=== PATIENT | female | born 1980 | race African-American/Black ===

== ENCOUNTER 2016-11-23 21:07 | Emergency (ER) | payer SELFPAY ==
--- NOTE | 2016-11-23 22:13 | RAD ---
THREE VIEWS OF THE RIGHT ANKLE 11/23/16 HISTORY: Injury after trauma. FINDINGS: A true lateral projection is Not provided which limits evaluation. There is otherwise no definite fracture seen, and there is no evidence of a dislocation. Posterior and plantar calcaneal enthesophytes are seen. There is subcutan eous soft tissue swelling about the ankle. IMPRESSION: Subcutaneous soft tissue swelling without evidence of a fracture. A true lateral view of the right a nkle is not provided. The provided lateral view is rotated. This does limit evaluation, but no defin ite acute osseous abnormality is seen. POS: [facility]
== END 2016-11-23 22:17 | disposition home or self-care (01) ==
LOC: MADERS 21:07
DX: S93.401A Sprain of unspecified ligament of right ankle, initial encounter (principal); I10 Essential (primary) hypertension; J45.909 Unspecified asthma, uncomplicated; F32.9 Major depressive disorder, single episode, unspecified; W18.09XA Striking against other object with subsequent fall, initial encounter

== ENCOUNTER 2016-12-27 20:55 | Emergency (ER) | payer SELFPAY ==
[2016-12-27 21:25] LABS: Bilirubin Negative (Negative); Blood, Urine Small (Negative); Clarity Clear (Clear); Glucose, Urine (Dipstick) Negative (Negative); Leukocyte Negative (Negative); Nitrite Negative (Negative); Pregnancy Test - Urine (BHCG) NEGATIVE (NEGATIVE); Pregu Control Bar Appear? YES (CONTROL BAR); Protein, Urine (Dipstick) Negative (Neg-Trace); Specific Gravity 1.025 (1.002-1.036); Specific Gravity, Urine 1.025 (1.005-1.030)
[2016-12-27 21:48] LABS: #Basophils 0.1 thou/uL (0.0-0.2); #Eosinphils 0.2 thou/uL (0.0-0.7); #Lymphocytes 2.5 thou/uL (1.20-3.40); #Monocytes 0.8 thou/uL (0.11-0.59); #Neutrophils 6.5 thou/uL (1.40-6.50); %Eosinophils 2.4 % (0.0-10.0); %Lymphocytes 24.5 % (21.0-51.0); %Monocytes 8.1 % (0.0-10.0); Hemoglobin 10.6 g/dL (12.0-16.0); Mean Corpuscular HGB CONC 32.3 g/dL (32.0-36.0); Mean Corpuscular Hemoglobin 27.5 pg (27.0-31.0); Mean Corpuscular Volume 85.3 fl (81.0-99.0); Mean Platelet Volume 8.6 fL (7.4-10.4); Platelet Count 293 thou/uL (130-400); RBC Distribution Width 12.5 % (11.5-14.5); Red Blood Cell (RBC) Count 3.85 mill/uL (4.20-5.40); White Blood Cell (WBC) Count 10.1 thou/uL (4.8-10.8)
[2016-12-27 21:49] LABS: Bacteria/HPF Rare-Few HPF (None Seen); WBC/HPF None Seen HPF (0-3)
[2016-12-27 22:02] LABS: ALT (SGPT) 13 U/L (0-55); AST (SGOT) 13 U/L (5-34); Albumin 3.5 g/dL (3.5-5.0); Alkaline Phosphatase 91 U/L (40-150); Anion Gap 14 mmol/L (10-20); BUN (Urea Nitrogen) 16 mg/dL (7.0-18.7); Bilirubin, Total Less than 0.3 mg/dL (0.2-1.2); Calc. Creatinine Clearance 0 mL/min (70-130); Calcium 8.6 mg/dL (7.8-10.44); Carbon Dioxide 24 mmol/L (22-29); Chloride 106 mmol/L (98-107); Estimated GFR-MDRD 67; Globulin 3.3 g/dL (2.4-3.5); Glucose 100 mg/dL (70-105); Potassium 3.9 mmol/L (3.5-5.1); Protein, Total 6.8 g/dL (6.0-8.3); Sodium 140 mmol/L (136-145)
[2016-12-27] MEDS ORDERED: Naproxen 500 MG TAB ONE (22:20)
[2016-12-27] MEDS ORDERED: HYDROcodone/Acetaminophen 10/325 mg Tablet ONE (22:20)
[2016-12-27] MEDS ORDERED: Cephalexin 500 MG CAP ONE (22:30)
[2016-12-27] MEDS ORDERED: Sulfameth/Trimethoprim DS 800-160mg TAB ONE (22:30)
== END 2016-12-27 22:46 | disposition home or self-care (01) ==
LOC: MADERS 20:55
DX: K57.92 Diverticulitis of intestine, part unspecified, without perforation or abscess without bleeding (principal); I10 Essential (primary) hypertension; J45.909 Unspecified asthma, uncomplicated; E66.9 Obesity, unspecified; F32.9 Major depressive disorder, single episode, unspecified
CPT/HCPCS: 36415; 80053; 81001; 81025; 85025; 87086; 99284

== ENCOUNTER 2017-02-22 18:02 | Emergency (ER) | payer SELFPAY ==
[2017-02-22 18:48] LABS: Pregnancy Test - Urine (BHCG) Negative (Negative); Pregu Control Background? CLEAR/WHITE (CLR/WHITE); Pregu Control Bar Appear? YES (CONTROL BAR); Specific Gravity 1.025 (1.002-1.036)
[2017-02-22 18:49] LABS: Bilirubin Negative (Negative); Blood, Urine Moderate (Negative); Clarity Clear (Clear); Glucose, Urine (Dipstick) Negative (Negative); Leukocyte Negative (Negative); Nitrite Negative (Negative); Protein, Urine (Dipstick) Negative (Neg-Trace); Specific Gravity, Urine 1.025 (1.005-1.030); Urobilinogen 0.2 mg/dL (0.2-1.0); pH, Urine 5.5 (5.0-9.0)
[2017-02-22 18:51] LABS: Bacteria/HPF Rare-Few HPF (None Seen); WBC/HPF 0-3 HPF (0-3)
[2017-02-22 18:53] LABS: #Basophils 0.1 thou/uL (0.0-0.2); #Eosinphils 0.2 thou/uL (0.0-0.7); #Lymphocytes 2.2 thou/uL (1.20-3.40); #Monocytes 0.6 thou/uL (0.11-0.59); #Neutrophils 5.1 thou/uL (1.40-6.50); %Basophils 1.4 % (0.0-1.0); %Eosinophils 2.2 % (0.0-10.0); %Monocytes 7.3 % (0.0-10.0); Hemoglobin 10.8 g/dL (12.0-16.0); Mean Corpuscular HGB CONC 30.3 g/dL (32.0-36.0); Mean Corpuscular Hemoglobin 26.2 pg (27.0-31.0); Mean Corpuscular Volume 86.5 fl (81.0-99.0); Mean Platelet Volume 8.7 fL (7.4-10.4); Platelet Count 324 thou/uL (130-400); RBC Distribution Width 12.7 % (11.5-14.5); Red Blood Cell (RBC) Count 4.12 mill/uL (4.20-5.40); White Blood Cell (WBC) Count 8.2 thou/uL (4.8-10.8)
[2017-02-22 19:08] LABS: ALT (SGPT) 11 U/L (8-55); AST (SGOT) 12 U/L (5-34); Albumin 3.6 g/dL (3.5-5.0); Alkaline Phosphatase 98 U/L (40-150); Anion Gap 16 mmol/L (10-20); BUN (Urea Nitrogen) 15 mg/dL (7.0-18.7); Bilirubin, Total Less than 0.3 mg/dL (0.2-1.2); Calc. Creatinine Clearance 0 mL/min (70-130); Calcium 8.8 mg/dL (7.8-10.44); Carbon Dioxide 23 mmol/L (22-29); Chloride 105 mmol/L (98-107); Estimated GFR-MDRD 84; Globulin 3.8 g/dL (2.4-3.5); Glucose 88 mg/dL (70-105); Potassium 4.2 mmol/L (3.5-5.1); Protein, Total 7.4 g/dL (6.0-8.3); Sodium 140 mmol/L (136-145)
== END 2017-02-22 20:35 | disposition home or self-care (01) ==
LOC: MADERS 18:02
DX: N93.8 Other specified abnormal uterine and vaginal bleeding (principal); J45.909 Unspecified asthma, uncomplicated; I10 Essential (primary) hypertension; E66.9 Obesity, unspecified; F32.9 Major depressive disorder, single episode, unspecified
CPT/HCPCS: 80053; 81001; 81025; 84443; 85025; 87086; 99284

== ENCOUNTER 2017-04-15 21:25 | Emergency (ER) | payer SELFPAY ==
[2017-04-15] MEDS ORDERED: Aspirin 325 MG TAB ONE (21:48)
[2017-04-15] MEDS ORDERED: Nitroglycerin 0.4 MG TAB 1 EACH ONE ×2 (21:48→22:58)
[2017-04-15 22:00] LABS: INR-International Normal Ratio 1.2; PTT 32.8 SEC (22.9-36.1)
[2017-04-15 22:01] LABS: BHCG - Serum Negative (NEGATIVE); Pregs Control Background? CLEAR/WHITE (CLR/WHITE); Pregs Control Bar Appear? YES (CONTROL BAR)
[2017-04-15 22:12] LABS: #Basophils 0.2 thou/uL (0.0-0.2); #Eosinphils 0.2 thou/uL (0.0-0.7); #Lymphocytes 2.4 thou/uL (1.20-3.40); #Monocytes 0.6 thou/uL (0.11-0.59); #Neutrophils 6.6 thou/uL (1.40-6.50); %Basophils 1.7 % (0.0-1.0); %Eosinophils 1.7 % (0.0-10.0); %Lymphocytes 24.3 % (21.0-51.0); %Monocytes 5.7 % (0.0-10.0); %Neutrophils 66.5 % (42.0-75.0); Mean Corpuscular HGB CONC 32.5 g/dL (32.0-36.0); Mean Corpuscular Hemoglobin 27.1 pg (27.0-31.0); Mean Corpuscular Volume 83.3 fl (81.0-99.0); Mean Platelet Volume 8.4 fL (7.4-10.4); Platelet Count 318 thou/uL (130-400); RBC Distribution Width 12.3 % (11.5-14.5); Red Blood Cell (RBC) Count 4.04 mill/uL (4.20-5.40); White Blood Cell (WBC) Count 9.9 thou/uL (4.8-10.8)
[2017-04-15 22:13] LABS: ALT (SGPT) 15 U/L (8-55); AST (SGOT) 14 U/L (5-34); Albumin 3.7 g/dL (3.5-5.0); Alkaline Phosphatase 99 U/L (40-150); Anion Gap 15 mmol/L (10-20); BUN (Urea Nitrogen) 16 mg/dL (7.0-18.7); Bilirubin, Total 0.3 mg/dL (0.2-1.2); CK (CPK) 125 U/L (29-168); Calc. Creatinine Clearance 0 mL/min (70-130); Calcium 8.5 mg/dL (7.8-10.44); Carbon Dioxide 23 mmol/L (22-29); Chloride 107 mmol/L (98-107); Estimated GFR-MDRD 62; Globulin 3.4 g/dL (2.4-3.5); Glucose 112 mg/dL (70-105); Potassium 3.7 mmol/L (3.5-5.1); Protein, Total 7.1 g/dL (6.0-8.3); Sodium 141 mmol/L (136-145)
[2017-04-15 22:14] LABS: CKMB 1.2 ng/mL (0-6.6); Troponin I Less than 0.010 ng/mL (< 0.028)
[2017-04-15 22:15] LABS: Hemoglobin A1c 4.6 % (4.0-6.0)
--- NOTE | 2017-04-15 22:28 | RAD ---
EXAM: ONE VIEW CHEST 04/15/17 HISTORY: Chest pain. COMPARISON: 06/08/16 FINDINGS: Portable upright chest radiograph demonstrates a normal cardiac silhouette. Diminished lung volumes likely due to poor inspiratory effort. Patchy opacities in the lung bases likely represent atelectas is. No pneumothorax or osseous abnormality. IMPRESSION: Bilateral lower lobe atelectasis. Diminished lung volumes due to poor inspiratory effort. POS: [facility]
[2017-04-15 23:10] LABS: Clarity Clear (Clear)
[2017-04-15 23:11] LABS: Glucose, Urine (Dipstick) Negative (Negative); Leukocyte Negative (Negative); Nitrite Negative (Negative); Protein, Urine (Dipstick) Trace mg/dL (Neg-Trace); Specific Gravity, Urine 1.032 (1.002-1.036)
[2017-04-15 23:12] LABS: Bacteria/HPF 1+ HPF (None Seen); Bilirubin Negative (Negative); Blood, Urine Trace (Negative); Other Microscopic Description 1+ MUCUS; Squamous Epithelial 0-3 HPF (0-3); WBC/HPF 0-3 HPF (0-3)
== END 2017-04-15 22:45 | disposition home or self-care (01) ==
LOC: MADERS 21:25
DX: R07.89 Other chest pain (principal); I10 Essential (primary) hypertension; J45.909 Unspecified asthma, uncomplicated; E66.9 Obesity, unspecified; F41.9 Anxiety disorder, unspecified; F32.9 Major depressive disorder, single episode, unspecified; Z79.2 Long term (current) use of antibiotics; Z79.891 Long term (current) use of opiate analgesic; Z79.899 Other long term (current) drug therapy
CPT/HCPCS: 71010; 80053; 81001; 82550; 82553; 83036; 83735; 83880; 84484; 84703; 85025; 85610; 85730; 87086; 93005; 94760

== ENCOUNTER 2017-06-15 21:24 | Emergency (ER) | payer SELFPAY ==
[2017-06-15 21:53] LABS: Clarity Clear (Clear); Glucose, Urine (Dipstick) Negative (Negative); Leukocyte Negative (Negative); Nitrite Negative (Negative); Protein, Urine (Dipstick) Negative (Neg-Trace)
[2017-06-15 21:54] LABS: Bilirubin Negative (Negative); Blood, Urine Small (Negative)
[2017-06-15 21:56] LABS: Bacteria/HPF Rare-Few HPF (None Seen); WBC/HPF 0-3 HPF (0-3)
[2017-06-15 21:57] LABS: Yeast-All Forms Rare HPF (None Seen)
[2017-06-15] MEDS ORDERED: Ibuprofen 800 MG TAB ONE (22:09)
== END 2017-06-15 22:32 | disposition home or self-care (01) ==
LOC: MADERS 21:24
DX: M62.830 Muscle spasm of back (principal); I10 Essential (primary) hypertension; J45.909 Unspecified asthma, uncomplicated; E66.9 Obesity, unspecified; F32.9 Major depressive disorder, single episode, unspecified; F41.9 Anxiety disorder, unspecified
CPT/HCPCS: 81003; 81015; 99283

== ENCOUNTER 2017-09-10 13:49 | Emergency (ER) | payer SELFPAY ==
[2017-09-10] MEDS ORDERED: Oseltamivir 75 MG CAP ONE (14:22)
[2017-09-10] MEDS ORDERED: Ketorolac Tromethamine 60 MG/2 ML VIAL ONE (14:22)
[2017-09-10 14:25] LABS: Pregnancy Test - Urine (BHCG) Negative (Negative); Specific Gravity 1.034 (1.002-1.036)
[2017-09-10 14:26] LABS: Pregu Control Background? CLEAR/WHITE (CLR/WHITE); Pregu Control Bar Appear? YES (CONTROL BAR)
== END 2017-09-10 14:45 | disposition home or self-care (01) ==
LOC: MADERS 13:49
DX: J11.1 Influenza due to unidentified influenza virus with other respiratory manifestations (principal); I10 Essential (primary) hypertension; E66.9 Obesity, unspecified; J45.909 Unspecified asthma, uncomplicated; F32.9 Major depressive disorder, single episode, unspecified; Z79.899 Other long term (current) drug therapy
CPT/HCPCS: 81025; 96372; J1885

== ENCOUNTER 2018-02-11 02:28 | Emergency (ER) | payer SELFPAY | END 2018-02-11 03:00 | disposition home or self-care (01) | LOC: MADERS 02:28 | DX: M54.5 Low back pain (principal); I10 Essential (primary) hypertension; E66.9 Obesity, unspecified; J45.909 Unspecified asthma, uncomplicated; F41.9 Anxiety disorder, unspecified; F32.9 Major depressive disorder, single episode, unspecified | CPT/HCPCS: 99283 ==

== ENCOUNTER 2018-03-20 23:36 | Emergency (ER) | payer SELFPAY ==
[~2018-03-20 23:36] MED LIST: Sodium Chloride 0.9% 500 ML BAG ONE
[2018-03-21] MEDS ORDERED: diphenhydrAMINE 50 MG/ML VIAL ONE (00:08)
[2018-03-21] MEDS ORDERED: Metoclopramide HCl 10 MG/2 ML VIAL ONE (00:09)
[2018-03-21] MEDS ORDERED: Magnesium Sulfate 2 GM/NS 0.9% 50 ML BAG ONE (00:09)
[2018-03-21] MEDS ORDERED: methylPREDNISolone Sod Succ/PF 125 MG/2 ML VIAL ONE (00:09)
[2018-03-21 00:21] LABS: Prothrombin Time 13.4 SEC (12.0-14.7)
[2018-03-21 00:28] LABS: ALT (SGPT) 12 U/L (8-55); AST (SGOT) 14 U/L (5-34); Albumin 3.4 g/dL (3.5-5.0); Alkaline Phosphatase 86 U/L (40-150); Anion Gap 16 mmol/L (10-20); BUN (Urea Nitrogen) 18 mg/dL (7.0-18.7); Bilirubin, Total 0.2 mg/dL (0.2-1.2); Calc. Creatinine Clearance 0 mL/min (70-130); Calcium 8.9 mg/dL (7.8-10.44); Carbon Dioxide 23 mmol/L (22-29); Chloride 108 mmol/L (98-107); Estimated GFR-MDRD 73; Globulin 3.8 g/dL (2.4-3.5); Glucose 97 mg/dL (70-105); Potassium 4.2 mmol/L (3.5-5.1); Protein, Total 7.2 g/dL (6.0-8.3); Sodium 143 mmol/L (136-145)
[2018-03-21 00:33] LABS: Hemoglobin 11.1 g/dL (12.0-16.0); Mean Corpuscular HGB CONC 33.4 g/dL (32.0-36.0); Mean Corpuscular Hemoglobin 27.2 pg (27.0-31.0); Mean Corpuscular Volume 81.3 fL (78.0-98.0); Platelet Count 334 thou/uL (130-400); RBC Distribution Width 12.4 % (11.5-14.5); Red Blood Cell (RBC) Count 4.07 mill/uL (4.20-5.40); White Blood Cell (WBC) Count 8.6 thou/uL (4.8-10.8)
[2018-03-21 00:34] LABS: Anisocytosis SLIGHT = 6-15 cells (100X) (0-5/hpf); Eosinophils 2 % (0-10); Lymphocytes 31 % (21-51); MDiff Complete? YES; Monocytes 4 % (0-10); Neutrophil 62 % (42-75); PLT Morphology Comment Appears Adequate; Poikilocytosis SLIGHT = 6-15 cells (100X) (0-5/hpf); RBC Morphology Abnormal; Reactive Lymphocytes 1 % (0-10)
== END 2018-03-21 01:19 | disposition home or self-care (01) ==
LOC: MADERS 23:36
DX: G43.909 Migraine, unspecified, not intractable, without status migrainosus (principal); I10 Essential (primary) hypertension; J45.909 Unspecified asthma, uncomplicated; Z79.899 Other long term (current) drug therapy; E66.9 Obesity, unspecified; F41.9 Anxiety disorder, unspecified; F32.9 Major depressive disorder, single episode, unspecified
CPT/HCPCS: 80053; 85025; 85610; 96365; 96375; J1200; J2765; J2930; J3475; J7050

== ENCOUNTER 2018-08-24 18:44 | Emergency (ER) | payer SELFPAY ==
[2018-08-24] MEDS ORDERED: HYDROcodone/Acetaminophen 5/325 mg Tablet ONE (19:20)
[2018-08-24] MEDS ORDERED: Ibuprofen 800 MG TAB ONE (19:20)
--- NOTE | 2018-08-24 19:34 | RAD ---
FOUR VIEWS OF THE RIGHT KNEE: 08/24/18 COMPARISON: None. HISTORY: Fall with right knee pain. FINDINGS: Four views of the right knee shows no evidence of acute fracture or dislocation. Small osteophytes ar e seen in the lateral femorotibial and patellofemoral compartments consistent with osteoarthritis. No knee effusion is seen. IMPRESSION: Mild right knee osteoarthritis without acute osseous abnormality. POS: [facility]
== END 2018-08-24 19:37 | disposition home or self-care (01) ==
LOC: MADERS 18:44
DX: M25.561 Pain in right knee (principal); M54.5 Low back pain; I10 Essential (primary) hypertension; E66.9 Obesity, unspecified; J45.909 Unspecified asthma, uncomplicated; W19.XXXA Unspecified fall, initial encounter

== ENCOUNTER 2018-10-16 20:14 | Emergency (ER) | payer OTHER | END 2018-10-16 20:45 | disposition home or self-care (01) | LOC: MADERS 20:14 | DX: M25.561 Pain in right knee (principal); I10 Essential (primary) hypertension; E66.9 Obesity, unspecified; J45.909 Unspecified asthma, uncomplicated; F41.9 Anxiety disorder, unspecified; Z79.899 Other long term (current) drug therapy | CPT/HCPCS: 99283 ==

== ENCOUNTER 2018-12-19 20:39 | Emergency (ER) | payer OTHER ==
--- NOTE | 2018-12-19 21:12 | RAD ---
Right ankle 3 views: 12/19/2018 COMPARISON: 11/23/2016 History: Right ankle pain FINDINGS: There is enthesophyte formation at the origin of the plantar aponeurosis. There is dorsal m id foot degenerative change with osteophyte formation and joint space narrowing. No displaced fracture or evidence of dislocation seen. IMPRESSION: Degenerative changes with no acute fracture or dislocation seen.
== END 2018-12-19 21:45 | disposition home or self-care (01) ==
LOC: MADERS 20:39
DX: S93.401A Sprain of unspecified ligament of right ankle, initial encounter (principal); S86.011A Strain of right Achilles tendon, initial encounter; J45.909 Unspecified asthma, uncomplicated; E66.9 Obesity, unspecified; I10 Essential (primary) hypertension; F41.9 Anxiety disorder, unspecified; Z79.899 Other long term (current) drug therapy; X58.XXXA Exposure to other specified factors, initial encounter; F32.9 Major depressive disorder, single episode, unspecified

== ENCOUNTER 2020-12-09 20:44 | Emergency (ER) | payer BC, SELFPAY ==
[2020-12-09] MEDS ORDERED: diphenhydrAMINE 50 MG/ML VIAL ONE (21:16)
[2020-12-09] MEDS ORDERED: Prochlorperazine 10 MG/2 ML VIAL ONE (21:16)
[2020-12-09] MEDS ORDERED: Loperamide HCl 2 MG CAP ONE (21:16)
== END 2020-12-09 21:53 | disposition home or self-care (01) ==
LOC: MADERS 20:44
DX: K52.9 Noninfective gastroenteritis and colitis, unspecified (principal); I10 Essential (primary) hypertension; J45.909 Unspecified asthma, uncomplicated; E66.9 Obesity, unspecified
CPT/HCPCS: 96372; 99283; J0780; J1200

== ENCOUNTER 2021-01-23 18:27 | Emergency (ER) | payer BC ==
[2021-01-23 19:27] LABS: Bilirubin Negative (Negative); Blood, Urine Large (Negative); Clarity Slightly Cloudy (Clear); Glucose, Urine (Dipstick) Negative (Negative); Ketone, Urine Negative (Negative); Leukocyte Negative (Negative); Nitrite Negative (Negative); Protein, Urine (Dipstick) Negative (Neg-Trace); Urobilinogen 0.2 mg/dL (Less than 2); pH, Urine 5.5 (5.0-9.0)
[2021-01-23 19:35] LABS: RBC/HPF Greater than 50 HPF (0-3); Specific Gravity, Urine 1.025 (1.002-1.036)
[2021-01-23 19:36] LABS: Bacteria/HPF Rare-Few HPF (None Seen); WBC/HPF 0-3 HPF (0-3)
[2021-01-23 19:38] LABS: BHCG - Serum Negative (NEGATIVE); Pregs Control Background? CLEAR/WHITE (CLR/WHITE); Pregs Control Bar Appear? YES (CONTROL BAR)
[2021-01-23 19:46] LABS: #Basophils 0.1 thou/uL (0.0-0.2); #Eosinphils 0.2 thou/uL (0.0-0.7); #Lymphocytes 1.9 thou/uL (1.20-3.40); #Monocytes 0.5 thou/uL (0.11-0.59); #Neutrophils 3.5 thou/uL (1.40-6.50); %Basophils 1.7 % (0.0-1.0); %Eosinophils 3.5 % (0.0-10.0); %Lymphocytes 29.9 % (21.0-51.0); %Monocytes 8.6 % (0.0-10.0); %Neutrophils 56.3 % (42.0-75.0); Bite Cells SLIGHT = 2-5 cells (100X) (0-1/hpf); Burr Cells SLIGHT = 2-5 cells (100X) (0-1/hpf); Helmet Cells SLIGHT = 2-5 cells (100X) (0-1/hpf); Hypochromia MODERATE=16-30 cells (100X) (0-5/hpf); MDiff Complete? YES; Mean Corpuscular HGB CONC 27.8 g/dL (32.0-36.0); Mean Corpuscular Hemoglobin 22.7 pg (27.0-31.0); Mean Corpuscular Volume 81.7 fL (78.0-98.0); Mean Platelet Volume 8.4 fL (7.4-10.4); Microcytosis SLIGHT = 6-15 cells (100X) (0-5/hpf); Ovalocytes SLIGHT = 2-5 cells (100X) (0-1/hpf); Platelet Count 369 thou/uL (130-400); Platelet Morphology Comment Appears Adequate; RBC Distribution Width 16.6 % (11.5-14.5); Red Blood Cell (RBC) Count 3.52 mill/uL (4.20-5.40); White Blood Cell (WBC) Count 6.3 thou/uL (4.8-10.8)
== END 2021-01-23 20:19 | disposition home or self-care (01) ==
LOC: MADERS 18:27
DX: N93.9 Abnormal uterine and vaginal bleeding, unspecified (principal); I10 Essential (primary) hypertension
CPT/HCPCS: 36415; 81003; 81015; 84703; 85025; 85060; 87480; 87491; 87510; 87591; 87660; 99284

== ENCOUNTER 2021-02-26 19:03 | Emergency (ER) | payer BC | END 2021-02-26 20:30 | disposition home or self-care (01) | LOC: MADERS 19:03 | DX: S81.011A Laceration without foreign body, right knee, initial encounter (principal); I10 Essential (primary) hypertension; E66.9 Obesity, unspecified; J45.909 Unspecified asthma, uncomplicated; X50.1XXA Overexertion from prolonged static or awkward postures, initial encounter ==

== ENCOUNTER 2022-02-21 13:04 | Emergency (ER) | payer OTHER ==
[2022-02-21] MEDS ORDERED: Cyclobenzaprine 10 MG TAB ONE (13:41)
[2022-02-21 13:53] LABS: Bilirubin Negative (Negative); Blood, Urine Trace (Negative); Glucose, Urine (Dipstick) Negative (Negative); Ketone, Urine Negative (Negative); Leukocyte Negative (Negative); Nitrite Negative (Negative); Protein, Urine (Dipstick) Negative (Neg-Trace)
[2022-02-21 13:54] LABS: Clarity Hazy (Clear)
[2022-02-21 13:55] LABS: Pregnancy Test - Urine (BHCG) Negative (Negative); Pregu Control Background? CLEAR/WHITE (CLR/WHITE); Pregu Control Bar Appear? YES (CONTROL BAR)
[2022-02-21 14:00] LABS: Bacteria/HPF 1+ HPF (None Seen); WBC/HPF 0-3 HPF (0-3)
== END 2022-02-21 14:12 | disposition home or self-care (01) ==
LOC: MADERS 13:04
DX: M54.41 Lumbago with sciatica, right side (principal); R31.29 Other microscopic hematuria; I10 Essential (primary) hypertension
CPT/HCPCS: 81003; 81015; 81025; 99283

== ENCOUNTER 2022-05-29 15:35 | Emergency (ER) | payer SELFPAY | END 2022-05-29 16:25 | disposition left against medical advice (07) | LOC: MADERS 15:35 | DX: Z53.21 Procedure and treatment not carried out due to patient leaving prior to being seen by health care provider (principal) ==

== ENCOUNTER 2022-06-07 21:37 | Emergency (ER) | payer BC, SELFPAY | END 2022-06-07 22:53 | disposition home or self-care (01) | LOC: MADERS 21:37 | DX: G56.03 Carpal tunnel syndrome, bilateral upper limbs (principal); M25.561 Pain in right knee; I10 Essential (primary) hypertension; F17.290 Nicotine dependence, other tobacco product, uncomplicated | CPT/HCPCS: 29125 ==

== ENCOUNTER 2022-08-25 22:52 | Emergency (ER) | payer BC, SELFPAY ==
[2022-08-26] MEDS ORDERED: Ibuprofen 800 MG TAB ONE (00:56)
== END 2022-08-26 01:05 | disposition home or self-care (01) ==
LOC: MADERS 22:52
DX: M25.561 Pain in right knee (principal); F17.290 Nicotine dependence, other tobacco product, uncomplicated

== ENCOUNTER 2022-10-26 20:47 | Emergency (ER) | payer BC, SELFPAY ==
[~2022-10-26 20:47] MED LIST changes: +Sodium Chloride 0.9% 1,000 ML BAG ONE; -Sodium Chloride 0.9% 500 ML BAG ONE
[2022-10-26 21:15] LABS: #Basophils 0.1 thou/uL (0.0-0.2); #Eosinphils 0.1 thou/uL (0.0-0.7); #Lymphocytes 2.1 thou/uL (1.20-3.40); #Monocytes 0.5 thou/uL (0.11-0.59); #Neutrophils 3.6 thou/uL (1.40-6.50); %Basophils 1.3 % (0.0-1.0); %Eosinophils 2.1 % (0.0-10.0); %Lymphocytes 33.2 % (21.0-51.0); %Monocytes 7.5 % (0.0-10.0); %Neutrophils 55.9 % (42.0-75.0); Hemoglobin 11.1 g/dL (12.0-16.0); Mean Corpuscular HGB CONC 32.6 g/dL (32.0-36.0); Mean Corpuscular Volume 85.9 fl (78.0-98.0); Mean Platelet Volume 8.1 fL (7.4-10.4); Platelet Count 299 10x3/uL (130-400); RBC Distribution Width 11.8 % (11.5-14.5); Red Blood Cell (RBC) Count 3.98 mill/uL (4.20-5.40); White Blood Cell (WBC) Count 6.4 10x3/uL (4.8-10.8)
[2022-10-26 21:25] LABS: BHCG - Serum Negative (NEGATIVE); Pregs Control Background? CLEAR/WHITE (CLR/WHITE); Pregs Control Bar Appear? YES (CONTROL BAR)
[2022-10-26 21:36] LABS: ALT (SGPT) 11 U/L (8-55); AST (SGOT) 12 U/L (5-34); Albumin 3.5 g/dL (3.5-5.0); Alkaline Phosphatase 63 U/L (40-110); Anion Gap 14 mmol/L (10-20); BUN (Urea Nitrogen) 13 mg/dL (7.0-18.7); Bilirubin, Total 0.3 mg/dL (0.2-1.2); Calc. Creatinine Clearance 0 mL/min (70-130); Calcium 8.6 mg/dL (7.8-10.44); Carbon Dioxide 24 mmol/L (22-29); Chloride 108 mmol/L (98-107); Estimated GFR 82; Globulin 3.2 g/dL (2.4-3.5); Glucose 96 mg/dL (70-105); Potassium 3.9 mmol/L (3.5-5.1); Protein, Total 6.7 g/dL (6.0-8.3); Sodium 142 mmol/L (136-145)
[2022-10-26 21:37] LABS: Acetaminophen Less than 10.0 mcg/mL (10.0-30.0); Alcohol Less than 10 mg/dL (Less than 10); Salicylate Less than 8.0 mg/dL (15.0-30.0)
[2022-10-26] MEDS ORDERED: Aspirin 325 MG TAB ONE (22:07)
[2022-10-26] MEDS ORDERED: Acetaminophen 500 MG TAB ONE (22:18)
[2022-10-26] MEDS ORDERED: ALPRAZolam 0.5 MG TAB ONE (22:46)
[2022-10-26] MEDS ORDERED: Ketorolac Tromethamine 30 MG/ML VIAL ONE (23:09)
[2022-10-26] MEDS ORDERED: Metoclopramide HCl 10 MG/2 ML VIAL ONE (23:10)
[2022-10-26] MEDS ORDERED: diphenhydrAMINE 50 MG/ML VIAL ONE (23:10)
[2022-10-27 00:26] LABS: Troponin I Less than 0.010 ng/mL (< 0.028)
== END 2022-10-27 02:11 | disposition short-term general hospital (02) ==
LOC: MADERS 20:47
DX: R07.89 Other chest pain (principal); F17.290 Nicotine dependence, other tobacco product, uncomplicated
CPT/HCPCS: 71045; 80053; 80307; 83735; 83880; 84484; 84703; 85025; 93005; 96374; 96375; J1200; J1885; J2765; J7050

== ENCOUNTER 2023-08-04 18:11 | Emergency (ER) | payer OTHER, SELFPAY ==
[2023-08-04] MEDS ORDERED: Meclizine HCl 25 MG TAB ONE (18:49)
[2023-08-04] MEDS ORDERED: Nitroglycerin 0.4 MG TAB 1 EACH ONE (18:49)
[2023-08-04] MEDS ORDERED: Aspirin Chewable 81 MG TAB ONE (18:50)
[2023-08-04] MEDS ORDERED: Prochlorperazine 10 MG/2 ML VIAL ONE (18:50)
[2023-08-04 19:06] LABS: Anisocytosis SLIGHT = 6-15 cells (100X) (0-5/hpf); BHCG - Serum Negative (NEGATIVE); Band 1 % (5-11); Eosinophils 3 % (0-10); Hematocrit 35.7 % (36.0-47.0); Hemoglobin 10.9 g/dL (12.0-16.0); Hypochromia SLIGHT = 6-15 cells (100X) (0-5/hpf); Lymphocytes 40 % (21-51); MDiff Complete? YES; Mean Corpuscular HGB CONC 30.6 g/dL (32.0-36.0); Mean Corpuscular Hemoglobin 28.3 pg (27.0-31.0); Mean Corpuscular Volume 92.6 fl (78.0-98.0); Mean Platelet Volume 9.1 fL (7.4-10.4); Monocytes 7 % (0-10); Neutrophil 48 % (42-75); Platelet Adequacy Comment Appears Adequate; Platelet Count 241 10x3/uL (130-400); Pregs Control Background? CLEAR/WHITE (CLR/WHITE); Pregs Control Bar Appear? YES (CONTROL BAR); Red Blood Cell (RBC) Count 3.86 mill/uL (4.20-5.40); White Blood Cell (WBC) Count 6.2 10x3/uL (4.8-10.8)
[2023-08-04 19:08] LABS: ALT (SGPT) 14 U/L (8-55); AST (SGOT) 18 U/L (5-34); Albumin 3.7 g/dL (3.5-5.0); Alkaline Phosphatase 64 U/L (40-110); Anion Gap 13 mmol/L (10-20); BUN (Urea Nitrogen) 19 mg/dL (7.0-18.7); Bilirubin, Total 0.2 mg/dL (0.2-1.2); Calc. Creatinine Clearance 0 mL/min (70-130); Calcium 8.5 mg/dL (7.8-10.44); Carbon Dioxide 22 mmol/L (22-29); Chloride 108 mmol/L (98-107); Estimated GFR 80; Globulin 3.5 g/dL (2.4-3.5); Glucose 93 mg/dL (70-105); Lipase 26 U/L (8-78); Potassium 3.7 mmol/L (3.5-5.1); Protein, Total 7.2 g/dL (6.0-8.3); Sodium 139 mmol/L (136-145)
[2023-08-04 19:09] LABS: Troponin I Less than 0.010 ng/mL (< 0.028)
[2023-08-04] MEDS ORDERED: Nitroglycerin 2% Ointment 1 INCH/1 GM Packet ONE (19:43)
[2023-08-04 20:10] LABS: Acetaminophen Less than 10 mcg/mL (10.0-30.0); Salicylate Less than 8.0 mg/dL (15.0-30.0)
[2023-08-04 22:07] LABS: Amphetamine Not Detected (NotDetected); Barbiturates Screen Not Detected (NotDetected); Benzodiazepine Screen Not Detected (NotDetected); Cocaine Metabolite Screen Not Detected (NotDetected); Methadone Not Detected (NotDetected); Methamphetamine Not Detected (NotDetected); Opiate Screen Not Detected (NotDetected); Oxycodone Screen Not Detected (NotDetected); Phencyclidine (PCP) Not Detected (NotDetected); THC/Cannabinoid Screen Not Detected (NotDetected); Tricyclic Screen Not Detected (NotDetected)
[2023-08-04 22:08] LABS: Troponin I Less than 0.010 ng/mL (< 0.028)
== END 2023-08-04 21:55 | disposition short-term general hospital (02) ==
LOC: MADERS 18:11
DX: R29.818 Other symptoms and signs involving the nervous system (principal); R07.9 Chest pain, unspecified; R42 Dizziness and giddiness; I10 Essential (primary) hypertension
CPT/HCPCS: 70450; 71046; 80053; 80306; 80307; 83690; 84484; 84703; 85025; 93005; 94760; 96374; J0780

== ENCOUNTER 2023-10-06 17:40 | Emergency (ER) | payer BC, OTHER ==
[2023-10-06] MEDS ORDERED: Ketorolac Tromethamine 30 MG (1 mL) VIAL ONE (18:44)
== END 2023-10-06 19:28 | disposition home or self-care (01) ==
LOC: MADERS 17:40
DX: S83.91XA Sprain of unspecified site of right knee, initial encounter (principal); I10 Essential (primary) hypertension; F41.9 Anxiety disorder, unspecified; F32.A Depression, unspecified; Z79.899 Other long term (current) drug therapy; X50.0XXA Overexertion from strenuous movement or load, initial encounter
CPT/HCPCS: 96372; J1885

== ENCOUNTER 2024-01-13 20:20 | Emergency (ER) | payer BC, OTHER ==
[2024-01-13] MEDS ORDERED: Ipratropium/Albuterol 3 ML NEB ONE (20:56)
[2024-01-13] MEDS ORDERED: Acetaminophen 500 MG TAB ONE (20:56)
[2024-01-13 21:56] LABS: Influenza A by NAA Not Detected (NotDetected); Influenza B by NAA Not Detected (NotDetected); SARS-CoV-2 NAA Rapid Test Not Detected (NotDetected)
[2024-01-13] MEDS ORDERED: predniSONE 20 MG TAB ONE (22:19)
[2024-01-13] MEDS ORDERED: predniSONE 10 MG TAB ONE (22:19)
== END 2024-01-13 22:23 | disposition home or self-care (01) ==
LOC: MADERS 20:20
DX: J06.9 Acute upper respiratory infection, unspecified (principal); K21.9 Gastro-esophageal reflux disease without esophagitis; I10 Essential (primary) hypertension; E66.9 Obesity, unspecified; Z79.899 Other long term (current) drug therapy
CPT/HCPCS: 71045; J7512; J7620

== ENCOUNTER 2024-05-15 21:37 | Emergency (ER) | payer BC ==
[2024-05-15 23:32] LABS: Band 3 % (5-11); Eosinophils 2 % (0-10); Hematocrit 34.1 % (36.0-47.0); Hemoglobin 10.4 g/dL (12.0-16.0); Lymphocytes 33 % (21-51); MDiff Complete? YES; Mean Corpuscular HGB CONC 30.4 g/dL (32.0-36.0); Mean Corpuscular Hemoglobin 27.5 pg (27.0-31.0); Mean Corpuscular Volume 90.4 fl (78.0-98.0); Mean Platelet Volume 9.8 fL (7.4-10.4); Monocytes 6 % (0-10); Neutrophil 56 % (42-75); Platelet Count 277 10x3/uL (130-400); RBC Distribution Width 12.9 % (11.5-14.5); Red Blood Cell (RBC) Count 3.77 mill/uL (4.20-5.40)
[2024-05-15 23:34] LABS: Prothrombin Time 13.6 sec (12.0-14.7)
[2024-05-15 23:35] LABS: PTT 30.2 sec (22.9-36.1)
[2024-05-15 23:45] LABS: Troponin I Less than 0.010 ng/mL (< 0.028)
[2024-05-15 23:49] LABS: ALT (SGPT) 14 U/L (8-55); AST (SGOT) 14 U/L (5-34); Albumin 3.1 g/dL (3.5-5.0); Alkaline Phosphatase 57 U/L (40-110); Anion Gap 15 mmol/L (10-20); BUN (Urea Nitrogen) 15 mg/dL (7.0-18.7); Bilirubin, Total 0.2 mg/dL (0.2-1.2); CK (CPK) 101 U/L (29-168); Calc. Creatinine Clearance 0 mL/min (70-130); Calcium 8.3 mg/dL (7.8-10.44); Carbon Dioxide 20 mmol/L (22-29); Chloride 109 mmol/L (98-107); Estimated GFR 79; Globulin 3.3 g/dL (2.4-3.5); Glucose 81 mg/dL (70-105); Potassium 3.8 mmol/L (3.5-5.1); Protein, Total 6.4 g/dL (6.0-8.3); Sodium 140 mmol/L (136-145)
[2024-05-16] MEDS ORDERED: Aspirin Chewable 81 MG TAB ONE (00:36)
[2024-05-16 02:40] LABS: Troponin I Less than 0.010 ng/mL (< 0.028)
[2024-05-16 05:38] LABS: Troponin I Less than 0.010 ng/mL (< 0.028)
== END 2024-05-16 13:50 | disposition short-term general hospital (02) ==
LOC: MADERS 21:37
DX: R29.818 Other symptoms and signs involving the nervous system (principal); I10 Essential (primary) hypertension; K21.9 Gastro-esophageal reflux disease without esophagitis; Z79.899 Other long term (current) drug therapy
CPT/HCPCS: 36415; 70450; 71045; 80053; 82550; 84484; 85025; 85610; 85730; 93005; 94760

== ENCOUNTER 2024-08-13 14:59 | Emergency (ER) | payer BC ==
[2024-08-13] MEDS ORDERED: Aspirin Chewable 81 MG TAB ONE (15:08)
[2024-08-13 15:33] LABS: #Basophils 0.1 thou/uL (0.0-0.2); #Eosinophils 0.3 thou/uL (0.0-0.7); #Lymphocytes 1.5 thou/uL (1.20-3.40); #Monocytes 0.6 thou/uL (0.11-0.59); #Neutrophils 2.4 thou/uL (1.40-6.50); %Basophils 2.3 % (0.0-1.0); %Eosinophils 5.7 % (0.0-10.0); %Lymphocytes 30.2 % (21.0-51.0); %Monocytes 12.3 % (0.0-10.0); %Neutrophils 49.6 % (42.0-75.0); Hematocrit 33.6 % (36.0-47.0); Hemoglobin 10.2 g/dL (12.0-16.0); Mean Corpuscular HGB CONC 30.4 g/dL (32.0-36.0); Mean Corpuscular Hemoglobin 27.2 pg (27.0-31.0); Mean Corpuscular Volume 89.2 fl (78.0-98.0); Mean Platelet Volume 8.2 fL (7.4-10.4); Platelet Count 267 10x3/uL (130-400); RBC Distribution Width 12.2 % (11.5-14.5); Red Blood Cell (RBC) Count 3.76 mill/uL (4.20-5.40); White Blood Cell (WBC) Count 4.9 10x3/uL (4.8-10.8)
[2024-08-13 15:48] LABS: ALT (SGPT) 22 U/L (8-55); AST (SGOT) 20 U/L (5-34); Albumin 3.3 g/dL (3.5-5.0); Alkaline Phosphatase 66 U/L (40-110); Anion Gap 10 mmol/L (10-20); BUN (Urea Nitrogen) 18 mg/dL (7.0-18.7); Bilirubin, Total 0.3 mg/dL (0.2-1.2); Calc. Creatinine Clearance 0 mL/min (70-130); Calcium 8.3 mg/dL (7.8-10.44); Carbon Dioxide 25 mmol/L (22-29); Chloride 109 mmol/L (98-107); Estimated GFR 88; Globulin 3.3 g/dL (2.4-3.5); Glucose 83 mg/dL (70-105); Potassium 4.1 mmol/L (3.5-5.1); Protein, Total 6.6 g/dL (6.0-8.3); Sodium 140 mmol/L (136-145); Troponin I Less than 0.010 ng/mL (< 0.028)
== END 2024-08-13 16:42 | disposition home or self-care (01) ==
LOC: MADERS 14:59
DX: R07.89 Other chest pain (principal); F43.23 Adjustment disorder with mixed anxiety and depressed mood; I10 Essential (primary) hypertension
CPT/HCPCS: 36415; 71046; 80053; 83880; 84484; 85025; 93005; 94760

== ENCOUNTER 2025-04-30 12:04 | Emergency (ER) | payer BC ==
[2025-04-30] MEDS ORDERED: Boostrix 0.5 ML (Tdap) VIAL (>/=7 yrs of age) ONE (12:34)
[2025-04-30] MEDS ORDERED: Dexamethasone 10 MG/ML VIAL ONE (12:34)
[2025-04-30] MEDS ORDERED: Albuterol 200 PUFF (6.7GM INHALER) ONE (12:34)
[2025-04-30] MEDS ORDERED: Amoxicillin/Potassium Clav 875 MG TAB ONE (12:44)
== END 2025-04-30 13:00 | disposition home or self-care (01) ==
LOC: MADERS 12:04
DX: J01.90 Acute sinusitis, unspecified (principal); B96.89 Other specified bacterial agents as the cause of diseases classified elsewhere; J20.9 Acute bronchitis, unspecified; I10 Essential (primary) hypertension; E66.9 Obesity, unspecified; K21.9 Gastro-esophageal reflux disease without esophagitis; E78.5 Hyperlipidemia, unspecified; G90.9 Disorder of the autonomic nervous system, unspecified; Z79.899 Other long term (current) drug therapy
CPT/HCPCS: 71046; 90715; 96372; J1100

== ENCOUNTER 2025-06-19 19:31 | Emergency (ER) | payer BC | END 2025-06-19 20:37 | disposition home or self-care (01) | LOC: MADERS 19:31 | DX: R20.2 Paresthesia of skin (principal); T50.2X5A Adverse effect of carbonic-anhydrase inhibitors, benzothiadiazides and other diuretics, initial encounter | CPT/HCPCS: 99283 ==

== ENCOUNTER 2025-07-06 17:23 | Emergency (ER) | payer BC ==
[~2025-07-06 17:23] MED LIST changes: +Iopamidol 370 76% 100 ML VIAL ONE; -Sodium Chloride 0.9% 1,000 ML BAG ONE
[2025-07-06 18:24] LABS: Hematocrit 33.2 % (36.0-47.0); Hemoglobin 10.1 g/dL (12.0-16.0); MDiff Complete? YES; Mean Corpuscular Hemoglobin 28.0 pg (27.0-31.0); Mean Corpuscular Volume 91.6 fl (78.0-98.0); Platelet Adequacy Comment Appears Adequate; Platelet Count 252 10x3/uL (130-400); Red Blood Cell (RBC) Count 3.62 mill/uL (4.20-5.40); White Blood Cell (WBC) Count 5.9 10x3/uL (4.8-10.8)
[2025-07-06 18:25] LABS: ALT (SGPT) 14 U/L (Less than 34); AST (SGOT) 21 U/L (11-34); Albumin 3.6 g/dL (3.1-4.5); Alkaline Phosphatase 58 U/L (40-110); Anion Gap 13 mmol/L (10-20); BUN (Urea Nitrogen) 14 mg/dL (7.0-18.7); Bilirubin, Total 0.2 mg/dL (0.3-1.2); Calc. Creatinine Clearance 0 mL/min (70-130); Calcium 8.3 mg/dL (7.8-10.44); Carbon Dioxide 22 mmol/L (22-29); Chloride 110 mmol/L (98-107); Globulin 3.3 g/dL (2.4-3.5); Glucose 88 mg/dL (70-105); Potassium 3.8 mmol/L (3.5-5.1); Sodium 141 mmol/L (136-145)
[2025-07-06 18:27] LABS: Troponin I Less than 0.010 ng/mL (< 0.028)
[2025-07-06] MEDS ORDERED: diphenhydrAMINE 50 MG/ML VIAL ONE (18:28)
[2025-07-06] MEDS ORDERED: Prochlorperazine 10 MG/2 ML VIAL ONE (18:29)
[2025-07-06] MEDS ORDERED: Magnesium 2 GM/50 ML BAG (IN WATER) ONE (19:12)
[2025-07-06] MEDS ORDERED: Aspirin Chewable 81 MG TAB ONE (19:12)
[2025-07-06 21:14] LABS: Troponin I Less than 0.010 ng/mL (< 0.028)
== END 2025-07-06 20:58 | disposition short-term general hospital (02) ==
LOC: MADERS 17:23
DX: R29.818 Other symptoms and signs involving the nervous system (principal); R07.2 Precordial pain; R51.9 Headache, unspecified; R29.703 NIHSS score 3; K21.9 Gastro-esophageal reflux disease without esophagitis; I10 Essential (primary) hypertension; E78.5 Hyperlipidemia, unspecified; Z86.73 Personal history of transient ischemic attack (TIA), and cerebral infarction without residual deficits
CPT/HCPCS: 36415; 70450; 70487; 70496; 70498; 71046; 80053; 84484; 85025; 93005; 94760; 96365; 96366; 96375; J0780; J1200; J2919; J3475; J7120; Q9967